=== PATIENT | female | born 1950 | race Caucasian/White ===

== ENCOUNTER → 2017-01-28 | Outpatient (CLI) | payer OTHER, MEDICARE ==
[~2017-01-28] VITALS: Ht 163.8 cm; Wt 90.2 kg
[2017-01-28 13:14] VITALS: BP 130/84; PULSE 64; Ht 163.8 cm; Wt 90.2 kg
== END | disposition home or self-care (01) ==
LOC: C.NEUR 12:40
PROVIDERS: ATTEND Internal Medicine Pulmonary Disease
DX: G47.30 Sleep apnea, unspecified (principal)

== ENCOUNTER → 2017-09-16 | Outpatient (CLI) | payer OTHER, MEDICARE ==
[~2017-09-16] VITALS: Ht 163.8 cm; Wt 92.6 kg
[2017-09-16 11:36] VITALS: BP 141/83; PULSE 63; Ht 163.8 cm; Wt 92.6 kg
== END | disposition home or self-care (01) ==
LOC: C.NEUR 11:01
PROVIDERS: ATTEND Internal Medicine Pulmonary Disease
DX: G47.33 Obstructive sleep apnea (adult) (pediatric) (principal)